=== PATIENT | female | born 1990 | race Two or more races ===

== ENCOUNTER 2019-05-29 11:16 | Inpatient (IN) | payer OTHER ==
[~2019-05-29] VITALS: Ht 152.4 cm; Wt 58.1 kg
[2019-05-29] MEDS ORDERED: CLARITIN10 M1 PO (11:18)
[2019-05-29] MEDS ORDERED: PRENATAL TABLE1 EAC1 PO (11:18)
== END 2019-06-04 12:49 | disposition home or self-care (01) | DRG 833 ==
LOC: OBS/DEL 11:16 → LDR 05-30 10:11 → OB/GYN 05-30 10:11
PROVIDERS: ADMIT Obstetrics & Gynecology
PROC: BY4CZZZ Ultrasonography of Second Trimester, Single Fetus (ICD-10-PCS; principal; 2019-05-30)
PROC: BY4CZZZ Ultrasonography of Second Trimester, Single Fetus (ICD-10-PCS; 2019-05-30)
PROC: 4A1HXCZ Monitoring of Products of Conception, Cardiac Rate, External Approach (ICD-10-PCS; 2019-05-30)
DX: O26.853 Spotting complicating pregnancy, third trimester (principal); O26.893 Other specified pregnancy related conditions, third trimester; O60.03 Preterm labor without delivery, third trimester; Z34.02 Encounter for supervision of normal first pregnancy, second trimester

== ENCOUNTER 2019-08-14 06:04 | Inpatient (IN) | payer OTHER ==
[~2019-08-14] VITALS: Ht 152.4 cm; Wt 62.6 kg
[~2019-08-14 06:04] MED LIST: CLARITIN10 M1 PO; PRENATAL TABLE1 EAC1 PO
[2019-08-14] MEDS ORDERED: NIFEDIPINE20 MG PO (06:15)
== END 2019-08-16 13:31 | disposition home or self-care (01) | DRG 805 ==
LOC: OB/GYN 06:04 → LDR 06:04 → OB/GYN 16:32
PROVIDERS: ADMIT Obstetrics & Gynecology
PROC: 10E0XZZ Delivery of Products of Conception, External Approach (ICD-10-PCS; principal; 2019-08-14)
PROC: 4A1HXCZ Monitoring of Products of Conception, Cardiac Rate, External Approach (ICD-10-PCS; 2019-08-14)
DX: O42.013 Preterm premature rupture of membranes, onset of labor within 24 hours of rupture, third trimester (principal); O60.23X0 Term delivery with preterm labor, third trimester, not applicable or unspecified; Z37.0 Single live birth; Z3A.36 36 weeks gestation of pregnancy